=== PATIENT | male | born 1985 | race Asian ===

== ENCOUNTER 2021-04-01 18:15 | Emergency (ER) | payer OTHER, SELFPAY ==
[2021-04-01 18:19] VITALS: BP 177/103; PULSE 81; RESP 16; TEMP 36.8; O2SAT 97; BMI 27.3
--- NOTE | 2021-04-01 18:19 | DI.RAD.S_ITS ---
PROCEDURE: XR CHEST 1V INDICATIONS: chest pain TECHNIQUE: One view of the chest was acquired. COMPARISON: None. FINDINGS: Surgical changes and devices: None. Lungs and pleura: Lungs are clear. No pleural effusions or pneumothorax. Mediastinum: Mediastinal contours appear normal. Heart size is normal. Bones and chest wall: No suspicious bony lesions. Overlying soft tissues appear unremarkable. IMPRESSION: No acute cardiopulmonary abnormality Dictated by: Roman Chavez M.D. on 04/01/2021 at 19:45 Approved by: Roman Chavez M.D. on 04/01/2021 at 19:45
--- NOTE | 2021-04-01 18:48 | ED_ITS ---
HPI - Chest Pain General Chief Complaint: Chest Pain Stated Complaint: arms tingling, chest tightness, jaw tingling Time Seen by Provider: 04/01/21 18:31 Source: patient Mode of arrival: Ambulatory Limitations: no limitations History of Present Illness HPI narrative: Patient is a 36-year-old male who arrived by private vehicle for evaluation of chest discomfort in both of his arms tingling in his jaw tingling. He states that the symptoms started as he was driving to a local shopping center with his family. He states that he started to feel very anxious. He had tightness in his chest and then developed tingling in both of his arms and in his jaw. Unsure exactly how long the symptoms lasted however by the time that I evaluated him he was symptom-free. He has never had any symptoms like this in the past. Review of Systems Constitutional Constitutional: Denies headache(s) ENT Ears, Nose, Mouth, and Throat: Denies headache(s) Cardiovascular Cardiovascular: Denies dyspnea Comments: Chest tightness Respiratory Respiratory: Denies dyspnea Gastrointestinal Gastrointestinal: Denies abdominal pain, Denies nausea and Denies vomiting Genitourinary Genitourinary: Denies dysuria Genitourinary: Denies dysuria Musculoskeletal Musculoskeletal: Denies myalgias Integumentary/Breasts Skin/Breast: Denies rash Neurologic Neurologic: Denies headache(s) Psychiatric Psychiatric: Reports anxiety Endocrine Endocrine: Reports system reviewed and no additional complaints, except as documented Hematologic/Lymphatic On Anticoagulants: No Allergic/Immunologic Allergic/Immunologic: Denies urticaria Patient History Medical History Healthy adult Social History Smoking Status: Never smoker Smoking Status: Never smoker alcohol intake frequency: a few times a month Substance Use Type: does not use Exam Initial Vital Signs Initial Vital Signs: Vital Signs Temperature 98.3 F 04/01/21 18:19 Pulse Rate 81 04/01/21 18:19 Respiratory Rate 16 04/01/21 18:19 Blood Pressure 177/103 H 04/01/21 18:19 Pulse Oximetry 97 04/01/21 18:19 Const General: cooperative and comfortable Limitations: mental status not altered HENMT Head: normal to inspection and normocephalic Eyes General: appearance normal, both eyes and all related structures Resp Effort & Inspection: normal respiratory effort Auscultation: clear to auscultation bilaterally Cardio Rate: regular rate Rhythm: regular rhythm GI Inspection: non-distended Palpation: soft Skin Lesions: no lesions Rashes: no rashes Neuro General: patient alert, patient awake and patient oriented x3 Cognition: normal cognition Speech: speech normal Extrem General: No edema Psych Appearance: grossly normal and well kempt Scores HEART Score Heart Score history: Slightly Suspicious Heart Score EKG: Normal Heart Score Age: < 45 years old Heart Score risk factors: No known risk factors Heart Score troponin: < or = to normal limit Heart Score Total: 0 Course Orders Ordered: ED Orders 04/01/21 18:19 XR chest 1V Stat 04/01/21 18:27 EKG-12 Lead Stat 04/01/21 18:41 Complete Blood Count AUTO DIFF Stat Comprehensive Metabolic Panel Stat Lipase Stat Partial Thromboplastin Time Stat Prothrombin Time INR Stat Troponin & CK Cardiac Panel Stat Vital Signs Vital signs: Vital Signs - 8 hr 04/01/21 18:19 04/01/21 19:01 04/01/21 19:30 Temperature 98.3 F Pulse Rate 81 70 64 Respiratory Rate 16 18 18 Blood Pressure 177/103 H 167/91 H 161/80 H Pulse Oximetry 97 98 97 04/01/21 20:00 Temperature Pulse Rate 57 L Respiratory Rate 17 Blood Pressure 143/82 H Pulse Oximetry 97 MDM - Chest Pain Lab Data Attestation: I reviewed the patient's lab results. Result diagrams: 04/01/21 18:41 04/01/21 18:41 Labs: Lab Results 04/01/21 04/01/21 04/01/21 Range/Units 18:41 18:41 18:41 WBC 8.6 (4.5-11.0) X10^3/uL RBC 5.72 (4.5-5.9) X10^6/uL Hgb 16.0 (13.5-17.5) g/dL Hct 49.3 (41-53) % MCV 86.2 (80-100) fL MCH 28.0 (26-34) PG MCHC 32.4 (30-36) % RDW 14.8 (11.6-14.8) % Plt Count 240 (150-400) X10^3/uL Neut % (Auto) 52.8 (50-75) % Lymph % (Auto) 30.9 (25-40) % [place] % (Auto) 8.9 (3-14) % Eos % (Auto) 6.4 H (2-4) % Baso % (Auto) 1.0 (0-2) % Neut # (Auto) 4600 (8365-2262) /uL Lymph # (Auto) 2700 (2143-0808) /uL [place] # (Auto) 800 (0-900) /uL Eos # (Auto) 500 H (0-450) /uL Baso # (Auto) 100 (0-100) /uL PT 10.9 (10.1-12.7) SECONDS INR 1.0 (0.9-1.3) APTT 40 H (26.4-36.2) SECONDS Sodium 137 (137-145) mmol/L Potassium 3.9 (3.4-5.1) mmol/L Chloride 102 (98-107) mmol/L Carbon Dioxide 26 (22-32) mmol/L BUN 18 (9-20) mg/dL Creatinine 0.92 (0.66-1.25) mg/dL Estimated GFR > 60.0 (>60) mL/min BUN/Creatinine Ratio 19.6 (6-22) Glucose 119 H (70-100) mg/dL Calcium 9.8 (8.4-10.2) mg/dL Total Bilirubin 0.3 (0.2-1.3) mg/dL AST 38 (17-59) IU/L ALT 39 (<50) IU/L Alkaline Phosphatase 112 (38-126) U/L Total Creatine Kinase 137 (55-170) U/L CK-MB (CK-2) 0.37 (<2.37) ng/mL CK-MB (CK-2) Rel Index 0.3 L (1.5-5.0) % Troponin I < 0.012 (0.01-0.034) ng/mL Total Protein 8.0 (6.3-8.2) g/dL Albumin 4.6 (3.5-5.0) g/dL Globulin 3.4 (1.7-4.1) g/dL Albumin/Globulin Ratio 1.4 (1.0-2.8) Lipase 38 (23-300) U/L Imaging Data Chest x-ray: Radiologist's Impression: [address] [id number] ReportSigned Patient: Mando Malin#: [id number]: 1985Acct:[id number] e/Sex: 36 / MDate of Service: 04/01/21Loc: EDAccession Number: [id number] Procedure: XR chest 1V Ordering Provider: Andrew Galvan D.O. PROCEDURE: XR CHEST 1V INDICATIONS: chest pain TECHNIQUE: One view of the chest was acquired. COMPARISON: None. FINDINGS: Surgical changes and devices: None. Lungs and pleura: Lungs are clear. No pleural effusions or pneumothorax. Mediastinum: Mediastinal contours appear normal. Heart size is normal. Bones and chest wall: No suspicious bony lesions. Overlying soft tissues appear unremarkable. IMPRESSION: No acute cardiopulmonary abnormality Dictated by: Roman Chavez M.D. on 04/01/2021 at 19:45 Approved by: Roman Chavez M.D. on 04/01/2021 at 19:45 ECG Data Attestation: I personally reviewed and interpreted this ECG as follows: Prior ECG tracings: not available for review Interpretation: Sinus rhythm Ventricular rate 85 Normal QRS Normal QTC No ST T wave changes MDM Narrative Medical decision making narrative: Patient asymptomatic. Low risk heart score. EKG is unremarkable. Chest x-ray is unremarkable. Low suspicion for ACS. Low suspicion for pulmonary embolism. I do have higher suspicion that his symptoms are related to anxiety/panic attack. I did discuss this with him. I feel we can hold on further workup for now. Patient will contact his primary provider for follow-up. He expressed understanding and agreement. Discharge Plan Departure Patient Disposition: Home Clinical Impression: Atypical chest pain Instructions: DI for Atypical Chest Pain Activity Restrictions/Additional Instructions: Your workup today is very reassuring that your heart and lungs are all normal. Your symptoms today could potentially be caused by anxiety although we cannot be 100% sure of this. I recommend that you talk with her primary provider for a follow-up. Please return to the emergency department for any new or worsening symptoms.
--- NOTE | 2021-04-01 18:50 | PC.NURSE ---
Pt states he was feeling sort of anxious while on an outing with his family and began to experience substernal chest pain, tingling in his hands and the L side of his face. Pt states he has had similar episodes in the past but not this severe. Pt reports that most of his symptoms have lessened at this point with just some mild CP and tingling to bilat hands.
[2021-04-01 19:01] VITALS: BP 167/91; PULSE 70; RESP 18; O2SAT 98
[2021-04-01 19:01] LABS: Prothrombin Time 10.9 SECONDS (10.1-12.7)
[2021-04-01 19:04] LABS: PTT Partial Thromboplastin Tim 40 SECONDS (26.4-36.2)
[2021-04-01 19:05] LABS: Alanine Aminotransferase 39 IU/L (<50); Albumin 4.6 g/dL (3.5-5.0); Albumin Globulin Ratio 1.4 (1.0-2.8); Alkaline Phosphatase 112 U/L (38-126); Aspartate Aminotransferase 38 IU/L (17-59); BUN Creatinine Ratio 19.6 (6-22); Bilirubin Total 0.3 mg/dL (0.2-1.3); Blood Urea Nitrogen 18 mg/dL (9-20); Calcium 9.8 mg/dL (8.4-10.2); Carbon Dioxide 26 mmol/L (22-32); Chloride 102 mmol/L (98-107); Creatine Kinase 137 U/L (55-170); Estimated Glomerular Filt Rate > 60.0 mL/min (>60); Globulin 3.4 g/dL (1.7-4.1); Glucose 119 mg/dL (70-100); Lipase 38 U/L (23-300); Potassium 3.9 mmol/L (3.4-5.1); Sodium 137 mmol/L (137-145)
[2021-04-01 19:17] LABS: Troponin I < 0.012 ng/mL (0.01-0.034)
[2021-04-01 19:20] LABS: CKMB % Relative Index 0.3 % (1.5-5.0); Creatine Kinase MB 0.37 ng/mL (<2.37); HEMOLYSIS 23 (0-50)
[2021-04-01 19:30] VITALS: BP 161/80; PULSE 64; RESP 18; O2SAT 97
[2021-04-01 19:33] LABS: Add Manual Diff / Slide Review NO; Basophils Absolute Auto 100 /uL (0-100); Eosinophils Absolute Auto 500 /uL (0-450); Eosinophils Percent Auto 6.4 % (2-4); Hematocrit 49.3 % (41-53); Lymphocytes Absolute Auto 2700 /uL (1100-4500); Lymphocytes Percent Auto 30.9 % (25-40); Mean Corpuscular HGB Conc 32.4 % (30-36); Mean Corpuscular Volume 86.2 fL (80-100); Monocytes Absolute Auto 800 /uL (0-900); Monocytes Percent Auto 8.9 % (3-14); Neutrophils Absolute Auto 4600 /uL (1500-7000); Neutrophils Percent Auto 52.8 % (50-75); Platelet Count 240 X10^3/uL (150-400); Red Blood Cell Count 5.72 X10^6/uL (4.5-5.9); Red Cell Distribution Width 14.8 % (11.6-14.8); White Blood Cell Count 8.6 X10^3/uL (4.5-11.0)
[2021-04-01 20:00] VITALS: BP 143/82; PULSE 57; RESP 17; O2SAT 97
== END 2021-04-01 20:07 | disposition home or self-care (01) ==
PROVIDERS: Emergency Provider Emergency Medicine
DX: R07.89 Other chest pain (principal); R20.2 Paresthesia of skin
CPT/HCPCS: 36415; 71045; 80053; 82550; 82553; 83690; 84484; 85025; 85610; 85730; 93005; 93010; 99283; 99284